=== PATIENT | male | born 1945 | race Hispanic/Latino ===

== ENCOUNTER 2018-12-22 11:09 | Inpatient (IN) | payer MEDICARE ==
[2018-12-22 12:01] LABS: #Eosinphils 0.1 thou/uL (0.0-0.7); #Lymphocytes 0.3 thou/uL (1.20-3.40); #Neutrophils 4.4 thou/uL (1.40-6.50); %Basophils 0.3 % (0.0-1.0); %Eosinophils 1.9 % (0.0-10.0); %Lymphocytes 6.6 % (21.0-51.0); %Monocytes 0.8 % (0.0-10.0); %Neutrophils 90.4 % (42.0-75.0); Hemoglobin 14.5 g/dL (14.0-18.0); Mean Corpuscular Hemoglobin 28.7 pg (27.0-31.0); Mean Platelet Volume 7.1 fL (7.4-10.4); Platelet Count 212 thou/uL (130-400); RBC Distribution Width 12.1 % (11.5-14.5); Red Blood Cell (RBC) Count 5.07 mill/uL (4.70-6.10); White Blood Cell (WBC) Count 4.9 thou/uL (4.8-10.8)
--- NOTE | 2018-12-22 12:04 | RAD ---
XR Chest 1 View Portable HISTORY: Fever COMPARISON: None FINDINGS: The heart size is normal. The lungs are well expanded without focal areas of consolidation, pneumothorax or pleural effusions. IMPRESSION: No radiographic evidence of acute cardiopulmonary process.
[2018-12-22 12:06] LABS: Bilirubin Negative (Negative); Blood, Urine Negative (Negative); Clarity Clear (Clear); Glucose, Urine (Dipstick) Normal (Negative); Leukocyte Negative Leu/uL (Negative); Nitrite Negative (Negative); Protein, Urine (Dipstick) Negative (Neg-Trace); Urobilinogen Normal mg/dL (Less than 2)
[2018-12-22 12:35] LABS: ALT (SGPT) 26 U/L (8-55); AST (SGOT) 43 U/L (5-34); Albumin 4.3 g/dL (3.4-4.8); Alkaline Phosphatase 98 U/L (40-110); Anion Gap 14 mmol/L (10-20); BUN (Urea Nitrogen) 15 mg/dL (8.4-25.7); Calc. Creatinine Clearance 0 mL/min (70-130); Calcium 9.3 mg/dL (7.8-10.44); Carbon Dioxide 23 mmol/L (23-31); Chloride 105 mmol/L (98-107); Estimated GFR-MDRD 78; Globulin 3.6 g/dL (2.4-3.5); Glucose 100 mg/dL (83-110); Potassium 4.7 mmol/L (3.5-5.1); Protein, Total 7.9 g/dL (5.8-8.1); Sodium 137 mmol/L (136-145)
--- NOTE | 2018-12-22 13:09 | CT ---
CT BRAIN WITHOUT CONTRAST: HISTORY: Altered mental status FINDINGS: No evidence of acute infarct, hemorrhage, midline shift or abnormal extra-axial fluid collections is seen. The ventricular size is appropriate and the basilar cisterns are patent. The bony calvarium is intact. The mastoid air cells are well aerated. There is mucosal disease in the paranasal sinuses. IMPRESSION: No CT evidence of acute intracranial process.
[2018-12-22] MEDS ORDERED: cefTRIAXone\\ROCEPHIN 1 GM VIAL ONE (13:29)
[2018-12-22] MEDS ORDERED: cefTRIAXone\\ROCEPHIN 2 GM VIAL ONE (13:30)
[2018-12-22] MEDS ORDERED: SODIUM CHLORIDE 0.9% IVPB SCH ×2 (14:00→16:45)
[2018-12-22] MEDS ORDERED: ACYCLOVIR SODIUM IVPB SCH ×2 (14:00→16:45)
[2018-12-22 14:55] LABS: Color Of CSF Supernatant COLORLESS (Colorless); Tube # 2; Unspun CSF Color COLORLESS (Colorless)
[2018-12-22 15:08] LABS: CSF, Glucose 63 mg/dl (40-70); CSF, Protein 48 mg/dL (15-40)
[2018-12-22 15:09] LABS: CSF Source CSF; Clarity Clear (Clear); Tube # 4
[2018-12-22] MEDS ORDERED: Vancomycin HCl 1.5 GM in Sodium Chloride 0.9% 250 ML 300 ML IVPB SCH (15:45)
[2018-12-22 15:52] LABS: Cell Count Non Hematic 17 %; Lymphocytes 83 %
[2018-12-22 19:27] VITALS: BMI 27.1
[2018-12-22] MEDS ORDERED: Ondansetron ODT 4 MG TAB SL PRN (19:32)
[2018-12-22] MEDS ORDERED: Ondansetron PF 4 MG/2 ML Vial IVP PRN (19:32)
[2018-12-22] MEDS ORDERED: Acetaminophen 325 MG TAB PO PRN (19:32)
[2018-12-22] MEDS: Lactated Ringer's 1,000 ML IV SCH (19:50)
[2018-12-23] MEDS ORDERED: Ibuprofen 200 MG TAB ONE (00:34)
[2018-12-23] MEDS ORDERED: Ibuprofen 200 MG TAB PO PRN (00:40)
[2018-12-23] MEDS: Lactated Ringer's 1,000 ML IV SCH (03:46)
[2018-12-23 05:34] LABS: #Lymphocytes 0.5 thou/uL (1.20-3.40); #Monocytes 0.5 thou/uL (0.11-0.59); #Neutrophils 9.4 thou/uL (1.40-6.50); %Basophils 0.2 % (0.0-1.0); %Eosinophils 0.2 % (0.0-10.0); %Lymphocytes 5.1 % (21.0-51.0); %Neutrophils 89.5 % (42.0-75.0); Mean Corpuscular HGB CONC 33.5 g/dL (32.0-36.0); Mean Corpuscular Hemoglobin 29.5 pg (27.0-31.0); Mean Platelet Volume 6.6 fL (7.4-10.4); Platelet Count 171 thou/uL (130-400); RBC Distribution Width 12.2 % (11.5-14.5); Red Blood Cell (RBC) Count 4.07 mill/uL (4.70-6.10); White Blood Cell (WBC) Count 10.5 thou/uL (4.8-10.8)
[2018-12-23] MEDS ORDERED: Ibuprofen 200 MG TAB PO SCH (06:00)
--- NOTE | 2018-12-23 08:52 | PDOC.HOSPP ---
- Subjective Subjective: Said he was feeling fine and had not complaints. He ate breakfast. Denies any new symptoms. Upon direct questioning, he does report that he had an episode of bloody, watery stool last night. He reports having received a flu shot 3-4 days ago. Reports occasional SANDOVAL, but that is not new. He relates it to the need for reading glasses. - Objective Vital Signs & Weight: Vital Signs (12 hours) Temp Pulse Resp BP Pulse Ox 12/23/18 08:22 99 12/23/18 08:19 40 L 16 99 12/23/18 07:45 98.0 F 47 L 20 121/60 94 L 12/23/18 03:46 98.6 F 55 L 22 H 110/55 L 96 12/23/18 01:25 103 F H 12/23/18 00:51 102.4 F H 76 28 H 144/67 H 97 12/23/18 00:40 97 12/23/18 00:24 100.4 F H 109 H 197/86 H 12/23/18 00:21 99.1 F 122 H 242/117 H 12/23/18 00:04 98.2 F 215/117 H 93 L Weight Weight 167 lb 12.8 oz I&O: 12/22/18 12/23/18 12/24/18 06:59 06:59 06:59 Intake Total 850 Output Total 150 Balance 700 Result Diagrams: 12/23/18 05:19 12/22/18 11:44 Hospitalist ROS - Medication Medications: Active Medications Generic Name Dose Route Start Last Admin Trade Name Freq PRN Reason Stop Dose Admin Albuterol/Ipratropium 3 ml 12/23/18 07:00 12/23/18 08:19 Duoneb NEB 3 ml [id number] Administration - Exam General Appearance: NAD, awake alert ENT: normocephalic atraumatic, no oropharyngeal lesions, moist mucosa Neck: supple, symmetric, no JVD Neck - other findings: FROM. Heart: RRR, no murmur, no gallops, no rubs, normal peripheral pulses Heart - other findings: Bradycardia Respiratory: CTAB, no wheezes, no rales, no ronchi, normal chest expansion, no tachypnea, normal percussion Gastrointestinal: soft, non-distended, normal bowel sounds, no palpable masses Gastrointestinal - other findings: TTP in the suprapubic and RLQ areas. Extremities: no cyanosis, no clubbing, no edema Musculoskeletal: normal tone, normal strength, no muscle wasting Psychiatric: normal affect, normal behavior, A&O x 3 Hosp A/P (1) Febrile illness, acute Code(s): R50.9 - FEVER, UNSPECIFIED Status: Acute (2) Hematochezia Code(s): K92.1 - MELENA Status: Acute (3) Abdominal tenderness Code(s): R10.819 - ABDOMINAL TENDERNESS, UNSPECIFIED SITE Status: Acute (4) Bradycardia Code(s): R00.1 - BRADYCARDIA, UNSPECIFIED Status: Acute (5) HTN (hypertension) Code(s): I10 - ESSENTIAL (PRIMARY) HYPERTENSION Status: Acute (6) HLD (hyperlipidemia) Code(s): E78.5 - HYPERLIPIDEMIA, UNSPECIFIED Status: Acute (7) BPH (benign prostatic hyperplasia) Code(s): N40.0 - BENIGN PROSTATIC HYPERPLASIA WITHOUT LOWER URINRY TRACT SYMP Status: Acute - Plan Stat EKG. Echo. CT Abdomen and pelvis. ID consult Pending. Add Zosyn to cover for colitis. Will defer other abx to Dr. Radford. Had Vanc and Rocephin last evening. Continue home meds.
[2018-12-23] MEDS: Piperacillin/Tazobactam 3.375 GM in Sodium Chloride 0.9% 100 ML IVPB SCH ×3 (10:26→22:04)
[2018-12-23] MEDS ORDERED: Iopamidol 370 76% 100 ML VIAL ONE (11:30)
[2018-12-23] MEDS: Tamsulosin HCl 0.4 MG CAP PO SCH (12:02)
[2018-12-23] MEDS: Atorvastatin Calcium 20 MG TAB PO SCH (12:02)
[2018-12-23] MEDS: Aspirin 81 mg Enteric Coated Tablet PO SCH (12:02)
[2018-12-23] MEDS: Lisinopril/Hydrochlorothiazide 20/25 mg Tablet PO SCH (12:02)
--- NOTE | 2018-12-23 13:01 | CT ---
CT ABDOMEN AND PELVIS WITH IV CONTRAST: Oral contrast was given. Multiplanar reconstruction. INDICATION: Fever, hematochezia. COMPARISON: Comparison is made to CT abdomen and pelvis 03/23/2017. FINDINGS: Lung bases clear. Liver, spleen, and pancreas unremarkable. Stomach and duodenum unremarkable. Adrenal glands normal. Kidneys unremarkable. Tiny low density lesions are seen along both renal cortices. These are stable from prior exam. These subcentimeter lesions probably represent tiny cysts. No hydronephrosis. Ur eters are normal caliber. Small bowel loops appear normal. Colon unremarkable. Aorta normal caliber. No mass, adenopathy, or free fluid. Images through the pelvis show mildly enlarged prostate. Urinary bladder unremarkable. Degenerative spine changes. IMPRESSION: No acute finding. POS: OFF
[2018-12-23] MEDS: Vancomycin HCl 750 MG in Sodium Chloride 0.9% 250 ML 250 ML IVPB SCH (18:03)
[2018-12-23] MEDS ORDERED: Vancomycin HCl 1 GM in Premix Bag 1 BAG IVPB SCH (21:00)
[2018-12-24] MEDS: Piperacillin/Tazobactam 3.375 GM in Sodium Chloride 0.9% 100 ML IVPB SCH ×2 (04:51→08:58)
[2018-12-24 05:29] LABS: #Eosinphils 0.3 thou/uL (0.0-0.7); #Lymphocytes 1.3 thou/uL (1.20-3.40); #Monocytes 0.6 thou/uL (0.11-0.59); #Neutrophils 5.1 thou/uL (1.40-6.50); %Basophils 0.4 % (0.0-1.0); %Eosinophils 4.6 % (0.0-10.0); %Monocytes 8.3 % (0.0-10.0); %Neutrophils 69.7 % (42.0-75.0); Hemoglobin 12.1 g/dL (14.0-18.0); Mean Corpuscular HGB CONC 33.5 g/dL (32.0-36.0); Mean Corpuscular Hemoglobin 29.5 pg (27.0-31.0); Mean Corpuscular Volume 88.1 fL (78.0-98.0); Mean Platelet Volume 7.1 fL (7.4-10.4); Platelet Count 169 thou/uL (130-400); RBC Distribution Width 12.4 % (11.5-14.5); Red Blood Cell (RBC) Count 4.09 mill/uL (4.70-6.10); White Blood Cell (WBC) Count 7.4 thou/uL (4.8-10.8)
[2018-12-24 06:06] LABS: Free T4 (Free Thyroxine) 0.74 ng/dL (0.70-1.48); Thyroid Stimulating Hormone 5.5969 uIU/mL (0.35-4.94)
[2018-12-24] MEDS: Vancomycin HCl 750 MG in Sodium Chloride 0.9% 250 ML 250 ML IVPB SCH (06:11)
--- NOTE | 2018-12-24 08:00 | CON ---
DATE OF CONSULTATION: 12/23/2018 REASON FOR CONSULTATION: Fever. HISTORY OF PRESENT ILLNESS: A 73-year-old, history of rhinitis, for which he is getting allergy injections on a regular schedule as well as hyperlipidemia, hypertension, who developed fever after one more of his regular courses of allergy shots in his doctor's office on the day of admission, developed fever up to 103, shaking chills. No headaches. No visual symptoms, sore throat, odynophagia, or dysphagia. No cough, sputum production, chest pain. No abdominal pain or diarrhea. He does have problems with voiding. He has had some delayed urinary stream, but no dysuria, no hematuria. He is seeing a urologist for that, Dr. Polk and he is on Flomax. PAST MEDICAL HISTORY: Hyperlipidemia, hypertension, right knee arthroscopy, and BPH. SOCIAL HISTORY: Never smoker. Retired. Lives in [place] with . ALLERGIES: NONE. CURRENT MEDICATIONS: 1. DuoNeb. 2. Ecotrin. 3. Lipitor. 4. Prinzide. 5. Motrin. 6. Protonix. 7. Zosyn. 8. Tamsulosin. PHYSICAL EXAMINATION: VITAL SIGNS: T-max 103, is now 97.4; BP 117/60; pulse 42; respirations 16; and O2 saturation 95%. SKIN: Normal. There is no lymphadenopathy. HEENT: Ocular movements conjugate. Sclerae white. Pupils are equal. Oral cavity, normal. NECK: Supple. LUNGS: Symmetric. Clear breath sounds. HEART: S1 and S2 regular rate with a soft aortic murmur. No S3 or S4. ABDOMEN: Soft, not distended or tender. No ascites. No bladder distention. MUSCULOSKELETAL: No joint inflammatory activity. Moves extremities equally. NEUROLOGIC: Cognitive function appears to be intact. LABORATORY DATA: White cell count 4.9 and 10.5, hemoglobin 14.5, platelets 212 , 90% neutrophils. Chemistry was normal except for AST 43, globulin 3.6. Lactic acid is 1.7. Urinalysis was normal. Evaluation of CSF was done, which was unremarkable. He had 10 nucleated cells, 83% lymphocytes, 17% non- hematological. Glucose 63, protein 48. Thus far, all the microbiology samples have been negative including blood cultures ASSESSMENT: Acute febrile illness after getting an injection for management of rhinitis. He has some history of BPH as well in the past. DISCUSSION: Differential diagnosis includes transient viral illness versus desensitization with allergy injections versus an alternate process that has not yet been identified. CT of abdomen and pelvis was not remarkable. There is very little evidence to suggest osteomuscular or [employer] infection. We will check virus PCR and respiratory secretion and continue monitoring. Job ID: [id number] MTDD
[2018-12-24] MEDS: Lisinopril/Hydrochlorothiazide 20/25 mg Tablet PO SCH (08:57)
[2018-12-24] MEDS: Atorvastatin Calcium 20 MG TAB PO SCH (08:58)
[2018-12-24] MEDS: Aspirin 81 mg Enteric Coated Tablet PO SCH (08:58)
[2018-12-24] MEDS: Tamsulosin HCl 0.4 MG CAP PO SCH (08:58)
[2018-12-24 11:45] VITALS: BP 155/70; TEMP 98.2
--- NOTE | 2018-12-25 13:56 | EKG ---
Test Reason : Blood Pressure : / mmHG Vent. Rate : 104 BPM Atrial Rate : 104 BPM P-R Int : 134 ms QRS Dur : 076 ms QT Int : 422 ms P-R-T Axes : 019 -21 019 degrees QTc Int : 554 ms Sinus tachycardia Otherwise normal ECG Confirmed by GIRISH ESTES, BRITTANI Roque ([id number]), senior technical editor MARTHA YOUNG ([id number]) on 12/25/2018 1:56:05 PM Referred By: Confirmed By:BRITTANI STOUT MD
--- NOTE | 2018-12-25 22:30 | DIS ---
DATE OF ADMISSION: 12/22/2018 DATE OF DISCHARGE: 12/24/2018 DISCHARGE DIAGNOSES: 1. Febrile illness. 2. Chronic allergic rhinitis, receiving allergy injections. 3. Mild bradycardia. 4. Hypertension. 5. Hyperlipidemia. 6. History of BPH. 7. Subjective hematochezia. 8. Subjective abdominal tenderness. HISTORY OF PRESENT ILLNESS: This patient is a 73-year-old male, who has a history of allergic rhinitis, who presented to Dr. Steven Oglesby's office for allergy injection. He states when he left there about 15 minutes later, he developed severe shaking rigors. He called his who called ambulance and brought him to the hospital, where he was noted to be febrile to 103 degrees plus and he had some confusion. During that time, the fever resolved. His mental status returned to normal and he recalled he had been confused earlier with good insight to that. He had extensive workup in the emergency department including a CBC, which was essentially normal. Chemistries only revealing AST at 43 and globulin 3.6, otherwise all normal. Urinalysis was negative. Lumbar puncture was normal with the exception of CSF protein being 48 with the upper limit of normal being 40. He had a negative chest x-ray and a negative brain CT. He had normal physical exam and denied any symptoms specific or referable to any specific infection. HOSPITAL COURSE: The patient initially received vancomycin, Rocephin and acyclovir in the emergency department. This case was discussed with Dr. Radford as I was admitting him and felt comfortable simply continuing with no antibiotics initially and there was some concern that this could be related to the patient's allergy injection and having a reaction to it. The patient had another fever that night with a temperature up to 103. His blood culture did initially show a positive result and so he was given an additional dose of vancomycin. On rounding on him that morning, the patient indicated that he had had some diarrhea in the night and it was red and he thought it was blood. His exam noted very slight tenderness in the lower abdomen. Therefore, a CT abdomen and pelvis was obtained as well as stool studies. CT abdomen was negative. All stool studies were negative with no evidence of blood. The patient was seen in consultation by Dr. Radford. He had echocardiogram performed and ultimately was afebrile over the following 24 hours and continued to remain asymptomatic. His blood culture proved to be a presumptive micrococcus species, felt to be skin contaminant. With that, the patient being afebrile for 24 hours with persistently normal white blood cell count and all workup being negative with no symptoms to clearing themselves, he was felt to be stable for discharge home. I discussed the case with Dr. Radford, who was comfortable discharging the patient as well. Of note, the patient did have some initial tachycardia when he was febrile. Subsequently, his heart rate did come down into the 40s. However, he was completely asymptomatic with that and his heart rate did improve when he got up and was more active. Therefore, it was felt to be a normal variant. No further workup was felt to be indicated. PHYSICAL EXAMINATION: VITAL SIGNS: On the day of discharge, temperature was 98.2, pulse 50, respirations 17, O2 saturation 95% on room air, BP 155/70. GENERAL APPEARANCE: Age-appropriate male, in no distress. He is awake, alert, oriented, pleasant, cooperative. HEART: Regular rate and rhythm. LUNGS: Clear bilaterally. ABDOMEN: Benign. EXTREMITIES: No cyanosis, clubbing, or edema. DISPOSITION: The patient is discharged to home. He will be on a regular diet. His activity is as tolerated. MEDICATIONS: He will continue with his usual home medications includin. Lisinopril HCTZ 20/12.5 one daily. 2. Tamsulosin 0.4 mg daily. 3. Omeprazole 20 mg daily. 4. Atorvastatin 20 mg daily. 5. Aspirin 81 mg daily. FOLLOWUP: He will follow up with Dr. Radford. He will follow up with Dr. Steven Oglesby. The patient's case was discussed with Dr. Oglesby by phone. Dr. Radford had suggested the patient consider stopping his allergy injections. Dr. Oglesby felt strongly that the patient's fever was not related to his allergy injections, however, we will defer those discussions to him. The patient will also follow up with Dr. Leo Roldan in 7 days. He can return to the hospital at anytime should he feel the need to do so. His echo did return ultimately with an EF of 55% to 60%, mild aortic valve sclerosis and [id number] tricuspid regurgitation. Job ID: [id number]
--- NOTE | 2018-12-27 09:11 | PQF ---
[employer] Crystal Reports IRAJ Stephenson JOVITA CARR MD [id number] [facility]-252 [id number] CLINICAL DOCUMENTATION CLARIFICATION FORM: POST DISCHARGE Addendum to original discharge summary date: ____ Late entry note date: __ DATE: 12/27/2018 ATTN:JOVITA CARR MD Please exercise your independent, professional judgment in responding to the clarification form. Clinical indicators are provided on the bottom of this form for your review Please check appropriate box(s): [ ] Fever due to Chronic rhinitis [ ] Fever due to Colitis [ x ] Fever unspecified cause [ ] Other diagnosis [ ] Unable to determine For continuity of documentation, please document condition throughout progress notes and discharge summary. Thank You. CLINICAL INDICATORS - SIGNS / SYMPTOMS / LABS - AMS, Fever- ED record, 12/22, Hua Hart MD - Add Zosyn to cover for colitis- Hospital Progress note, 12/23, JOVITA CARR MD - Febrile illness, acute- Hospital Progress note, 12/23, JOVITA CARR MD - Acute febrile illness after getting an injection for management of rhinitis- Consult note, 12/24, Prabhakar Moon MD - Patients fever was not related to his allergy infections- DS, 12/24, JOVITA CARR MD RISK FACTORS -Hematochezia- Hospital Progress note, 12/23, JOVITA CARR MD -Chronic allergic rhinitis- DS, 12/24, JOVITA CARR MD TREATMENTS: -Rocephin.IV-MAY, 12/22 -Acyclovir sodium.IV-MAY, 12/22 -Ibuprofen.PO-MAY, 12/22 (This form is maintained as a part of the permanent medical record) 2014 [employer]. All Rights Reserved Collins Rodriguez [not provided] [not provided] FABIANA
--- NOTE | 2018-12-27 23:00 | EKG ---
Test Reason : Blood Pressure : / mmHG Vent. Rate : 047 BPM Atrial Rate : 047 BPM P-R Int : 132 ms QRS Dur : 100 ms QT Int : 484 ms P-R-T Axes : 013 -02 -02 degrees QTc Int : 428 ms Marked sinus bradycardia with sinus arrhythmia Abnormal ECG When compared with ECG of 22-DEC-2018 11:23, (Unconfirmed) Vent. rate has decreased BY 60 BPM Confirmed by GOLDEN THOMPSON M.D. ([id number]) on 12/27/2018 10:59:58 PM Referred By: LILLY Confirmed By:GOLDEN THOMPSON M.D.
== END 2018-12-24 13:49 | disposition home or self-care (01) | DRG 864 ==
LOC: ERS 11:09 → EDBD 11:09 → OBSVTOIN 19:15 → 2SW 19:15 → 2NO 12-23 20:06
PROVIDERS: ADMIT Family Medicine; ATTEND Family Medicine
PROC: 009U3ZX Drainage of Spinal Canal, Percutaneous Approach, Diagnostic (ICD-10-PCS; principal; 2018-12-22)
DX: R50.9 Fever, unspecified (principal); I10 Essential (primary) hypertension; K52.9 Noninfective gastroenteritis and colitis, unspecified; E78.5 Hyperlipidemia, unspecified; R00.1 Bradycardia, unspecified; N40.0 Benign prostatic hyperplasia without lower urinary tract symptoms; J30.9 Allergic rhinitis, unspecified; I08.2 Rheumatic disorders of both aortic and tricuspid valves; R00.0 Tachycardia, unspecified
CPT/HCPCS: 36415; 51736; 51798; 62270; 70450; 71045; 74177; 80053; 81003; 82274; 82945; 83605; 83630; 84157; 84439; 84443; 85025; 85060; 87040; 87045; 87046; 87070; 87081; 87086; 87149; 87205; 87324; 87427; 87430; 87449; 87633; 87804; 89051; 93005; 93010; 93306; 94640; 96361; 96365; 96366; 96367; 96374; 99214; G0463; J0133; J0696; J2543; J3370; J3490; J7050; J7620; Q0162